=== PATIENT | female | born 1945 | race Caucasian/White ===

== ENCOUNTER 2020-12-12 09:18 | Outpatient (RCR) | payer MEDICARE, OTHER, SELFPAY ==
[2020-12-12] MEDS: diphenhydrAMINE HCl CAP 25 MG CAPSULE PO (09:39)
[2020-12-12] MEDS: ACETAMINOPHEN 325 MG TABLET 650 MG PO (09:40)
[2020-12-12] MEDS: FAMOTIDINE 20 MG TABLET PO (09:40)
[2020-12-12 10:04] VITALS: BP 144/63; PULSE 54; RESP 20; TEMP 36.8; O2SAT 97
[2020-12-12 11:13] VITALS: BP 145/63; PULSE 51; RESP 18; TEMP 36.7; O2SAT 99
--- NOTE | 2020-12-12 11:15 | PC.NURSE ---
Patient is not vaccinated against COVID.
--- NOTE | 2020-12-13 10:12 | PC.NURSE ---
Called patient to follow-up regarding antibody infusion yesterday. Patient states she is feeling better and denies any side effects at this time.
== END 2020-12-12 16:00 | disposition home or self-care (01) ==
LOC: AMCINF 09:18
PROVIDERS: PCP Internal Medicine; Referring Provider Physician Assistant Medical; Visit Provider Internal Medicine Hematology & Oncology
DX: Z23 Encounter for immunization (principal); U07.1 COVID-19
CPT/HCPCS: A9270; M0243; Q0243

== ENCOUNTER 2022-04-02 01:19 | Day surgery (SDC) | payer MEDICARE, OTHER, SELFPAY ==
[2022-03-19 14:52] VITALS: BMI 24.1
[2022-04-02 09:41] VITALS: BP 164/73; PULSE 60; RESP 16; TEMP 36.3; O2SAT 100; BMI 23.6
--- NOTE | 2022-04-02 09:48 | WPDANESEPPF ---
Anes - Initial Pre Proc Eval Procedure: Operation Date: 04/02/22 11:00 Proposed Procedures p Screening Colonoscopy - Terry Alvarado MD Date/Time: 04/02/22 09:48 Surgeon: Terry Alvarado MD Pre Op Diagnosis: neoplams screening Patient Data Age: 76 Gender: F Height: 1.63 m Weight: 62.3 kg Last Vital Signs Temp 97.4 F L 04/02/22 09:41 Pulse 60 04/02/22 09:41 Resp 16 04/02/22 09:41 BP 164/73 H 04/02/22 09:41 Pulse Ox 100 04/02/22 09:41 O2 Del Method Room Air 04/02/22 09:41 Allergies Allergy/AdvReac Type Severity Reaction Status Date / Time No Known Allergies Allergy Verified 04/02/22 09:40 Home Medications Medication Instructions Recorded Confirmed Type levothyroxine 75 mcg tablet 75 mcg PO DAILY #90 tabs 02/12/22 04/02/22 Rx Fiber Well 2 gummy PO DAILY 03/19/22 04/02/22 History Neuro Mag 1 cap PO BID 03/19/22 04/02/22 History biotin 10,000 mcg chewable tablet 10,000 mcg PO DAILY 03/19/22 04/02/22 History (Hair, Skin and Nails (biotin)) cholecalciferol (vitamin D3) 125 125 mcg PO BID 03/19/22 04/02/22 History mcg (5,000 unit) tablet (Vitamin D3) elderberry fruit 200 mg capsule 200 mg PO DAILY 03/19/22 04/02/22 History fish, borage, flaxseed oils-omega 1 cap PO BID 03/19/22 04/02/22 History 3,6,9 comb no.1 1,200 mg capsule ([place] 3-6-9) vit C-vit S-vrdzeb-bgszrihw-omega 1 cap PO DAILY 03/19/22 04/02/22 History 3 100 mg-15 unit-2 mg-100 mg capsule Patient hx anesthesia problems: none Family hx anesthesia problems: none Results Review: All pre-operative results and documents have been reviewed as part of the pre-operative evaluation. 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/08 (L) 07/09(R) Family History Family History Father Hypertension Chronic emphysema syndrome Mother Heart disease Pacemaker Thyroid disorder Sibling Depression Carcinoma of colon Social History Social History (Updated 03/05/22 @ 09:46 by Sayra Scott) Smoking status: Never smoker Alcohol intake: current Drinks per week: 3 Alcohol use details: wine Substance use: never Substance use type: does not use Lack of Transportation: No Lack of Food: Never True Current Housing: I Have Housing Concerned About Future Housing: No Difficulty Paying Gas/Electric Bills: No Difficulty Paying for Meds: No Currently Unemployed: No Education: High School Diploma/GED Difficulty w/ Childcare or Family Care: No Living arrangements: with family Occupation/Education: retired Gender identity (if verbalized by the patient): Female Sexual Orientation (if Verbalized by the Patient): Straight or Heterosexual Spiritual care concerns: No Agree to blood products: Yes Anes - Eval Final PreProcedure Day of Procedure 04/02/22 09:48 Patient weight: normal Heart: regular rate and rhythm Lungs: clear to auscultation Airway: Mallampati scale class II Neurological: alert and oriented Last oral intake: >/= 8 hours ASA classification: III Emergent: no Anesthetic plan: proceed Anesthesia type and monitoring: general GIVS and standard monitoring Results Review: All pre-operative results and documents have been reviewed as part of the pre-operative evaluation. Informed Consent: The patient's anesthetic plan and its attendant risks and benefits were discussed with the patient/family/POA. Questions were solicited and answers provided to the satisfaction of the patient/
[2022-04-02] MEDS: LACTATED RINGERS 1,000 ML 150 ML IV CONT (09:55)
--- NOTE | 2022-04-02 10:11 | PM.HPGS ---
History of Present Illness History of Present Illness Consent: Risks, benefits, and alternatives have been discussed and questions answered. Patient agrees to proceed with procedure. Chief complaint: neoplams screening Narrative: Sergio Whitt is a 76 year old female with last colonoscopy 5 years ago and never had polyps but 2 brothers had colon cancer Review of Systems Constitutional: Constitutional: Denies headache(s) and Denies weakness Eyes: Eyes: Denies blurry vision ENT: Reports Normal hearing present, Denies headache(s) and Denies neck pain Cardiovascular: Cardiovascular: Denies chest pain and Denies dyspnea Respiratory: Respiratory: Denies dyspnea Gastrointestinal: Gastrointestinal: Reports no additional gastrointestinal complaints Genitourinary: Genitourinary: Denies dysuria Musculoskeletal: Musculoskeletal: Denies neck pain Integumentary/Breasts: Skin/Breast: Denies dry skin Neurologic: Reports Normal hearing present, Denies headache(s) and Denies weakness Psychiatric: Psychiatric: Denies anxiety Endocrine: Endocrine: Denies change in body appearance Hematologic/Lymphatic: Hematologic/Lymphatic: Denies easy bleeding Allergic/Immunologic: Allergic/Immunologic: Denies urticaria PMF Past Medical History Medical History (Updated 04/02/22 @ 10:11 by Terry Alvarado MD) Aortic stenosis Arthritis Family history of colon cancer Hypothyroidism Pacemaker Surgical History Surgical History Benign thyroid cyst 1982 History of dilation and curettage History of partial knee replacement 2018 Multiple benign lumps of breast Pacemaker 11/10 Presence of artificial intra-ocular lens 11/08 (L) 07/09(R) Family History Family History Father Hypertension Chronic emphysema syndrome Mother Heart disease Pacemaker Thyroid disorder Sibling Depression Carcinoma of colon Social History Social History (Updated 03/05/22 @ 09:46 by Sayra Scott) Smoking status: Never smoker Alcohol intake: current Drinks per week: 3 Alcohol use details: wine Substance use: never Substance use type: does not use Lack of Transportation: No Lack of Food: Never True Current Housing: I Have Housing Concerned About Future Housing: No Difficulty Paying Gas/Electric Bills: No Difficulty Paying for Meds: No Currently Unemployed: No Education: High School Diploma/GED Difficulty w/ Childcare or Family Care: No Living arrangements: with family Occupation/Education: retired Gender identity (if verbalized by the patient): Female Sexual Orientation (if Verbalized by the Patient): Straight or Heterosexual Spiritual care concerns: No Agree to blood products: Yes Meds Home Medications and Allergies Home Medications Medication Instructions Recorded Confirmed Type levothyroxine 75 mcg tablet 75 mcg PO DAILY #90 tabs 02/12/22 04/02/22 Rx Fiber Well 2 gummy PO DAILY 03/19/22 04/02/22 History Neuro Mag 1 cap PO BID 03/19/22 04/02/22 History biotin 10,000 mcg chewable tablet 10,000 mcg PO DAILY 03/19/22 04/02/22 History (Hair, Skin and Nails (biotin)) cholecalciferol (vitamin D3) 125 125 mcg PO BID 03/19/22 04/02/22 History mcg (5,000 unit) tablet (Vitamin D3) elderberry fruit 200 mg capsule 200 mg PO DAILY 03/19/22 04/02/22 History fish, borage, flaxseed oils-omega 1 cap PO BID 03/19/22 04/02/22 History 3,6,9 comb no.1 1,200 mg capsule ([place] 3-6-9) vit C-vit Z-vputus-wwiqbodv-omega 1 cap PO DAILY 03/19/22 04/02/22 History 3 100 mg-15 unit-2 mg-100 mg capsule Allergies Allergy/AdvReac Type Severity Reaction Status Date / Time No Known Allergies Allergy Verified 04/02/22 09:40 Vital Signs Vital Signs - 24 hr 04/02/22 09:41 Temperature 97.4 F L Pulse Rate 60 Respiratory Rate 16 Blood Pressure 164/73 H Puls
[2022-04-02 10:28] VITALS: BP 102/47; PULSE 56; RESP 22; O2SAT 98
[2022-04-02 10:38] VITALS: BP 117/55; PULSE 52; RESP 20; O2SAT 97
[2022-04-02 10:48] VITALS: BP 125/70; PULSE 50; RESP 21; O2SAT 100
== END 2022-04-02 10:55 | disposition home or self-care (01) ==
PROVIDERS: PCP Physician Assistant Medical; Visit Provider Internal Medicine Gastroenterology
PROC: 0DJD8ZZ Inspection of Lower Intestinal Tract, Via Natural or Artificial Opening Endoscopic (ICD-10-PCS; CPT 45378; principal; 2022-04-02 11:00)
DX: Z12.11 Encounter for screening for malignant neoplasm of colon (principal); K57.30 Diverticulosis of large intestine without perforation or abscess without bleeding; K64.8 Other hemorrhoids; Z80.0 Family history of malignant neoplasm of digestive organs; E03.9 Hypothyroidism, unspecified; Z95.0 Presence of cardiac pacemaker
CPT/HCPCS: G0105; J2704; J7120